=== PATIENT | male | born 1975 | race Caucasian/White ===

== ENCOUNTER 2018-03-12 00:26 | Outpatient (CLI) | payer OTHER, SELFPAY ==
--- NOTE | 2018-03-12 13:42 | DI.CT_ITS ---
SYMPTOM/DIAGNOSIS: SMALL NODULES RT LUNG BASE ON CT 05/2016, H/O SMOKING CHEST CT: CT scan of the chest was performed following the uneventful administration of contrast material. Comparison outside examination is 06/02/16. The thoracic aorta is of normal caliber. No aneurysmal dilatation is seen. The heart size is within normal limits. No pericardial effusion is present. No significant mediastinal, hilar or axillary adenopathy is present. No pleural effusion or pneumothorax is identified. There are several (less than 10) non calcified pulmonary nodules present in the lungs. The largest is seen in the right middle lobe (series 5, image 257). It measures .4 cm. The four nodules seen in the right lower lobe on the examination from 05/2016 are again seen. They are unchanged in size compared to the prior examination. No pulmonary infiltrates are seen. The tracheobronchial tree is unremarkable. Upper abdominal images are unremarkable. Mild degenerative changes are seen in the spine. IMPRESSION: 1. Stable small nodules seen in the right lung base since 05/2016. 2. Several small non calcified pulmonary nodules, the largest measures .4 cm. and is located in the right middle lobe. 3. Annual screening with low dose CT is recommended in 12 months.
[2018-03-12] MEDS: Omnipaque 350 MG/ML 100 ML BTL IJ (14:26)
== END 2018-03-12 00:46 ==
PROVIDERS: PCP Nurse Practitioner Adult Health; Visit Provider Nurse Practitioner Adult Health
DX: R91.8 Other nonspecific abnormal finding of lung field (principal); Z87.891 Personal history of nicotine dependence
CPT/HCPCS: 71260; J3490